=== PATIENT | female | born 1930 | race Caucasian/White ===

== ENCOUNTER 2021-09-03 12:38 | Emergency (ER) | payer OTHER ==
[2021-09-03] MEDS ORDERED: Xylocaine 1% w/ Epi 1:100K 10 ML VIAL ONE (12:43)
[2021-09-03] MEDS ORDERED: Metoprolol Tartrate 25 MG TAB ONE (12:43)
[2021-09-03] MEDS ORDERED: Bacitracin 1 PK ONE (15:02)
== END 2021-09-03 15:16 | disposition home or self-care (01) ==
LOC: ERS 12:38
DX: S01.81XA Laceration without foreign body of other part of head, initial encounter (principal); I10 Essential (primary) hypertension; W01.110A Fall on same level from slipping, tripping and stumbling with subsequent striking against sharp glass, initial encounter; Y93.01 Activity, walking, marching and hiking; Y92.89 Other specified places as the place of occurrence of the external cause
CPT/HCPCS: 12013; 70450; 72125

== ENCOUNTER 2021-09-08 18:15 | Emergency (ER) | payer OTHER ==
[2021-09-08] MEDS ORDERED: Lidocaine 1% (PF) 30 ML VIAL ONE (19:16)
== END 2021-09-08 21:12 | disposition home or self-care (01) ==
LOC: ERS 18:15
DX: S82.042A Displaced comminuted fracture of left patella, initial encounter for closed fracture (principal); S61.412A Laceration without foreign body of left hand, initial encounter; I10 Essential (primary) hypertension; W19.XXXA Unspecified fall, initial encounter
CPT/HCPCS: 12001; 12013; J2001